=== PATIENT | female | born 1945 | race Hispanic/Latino ===

== ENCOUNTER 2017-10-11 16:20 | Emergency (ER) | payer BC, MEDICARE ==
[~2017-10-11] VITALS: Ht 170.2 cm; Wt 119.3 kg
[~2017-10-11 16:20] MED LIST: AMLODIPINE BESYL5 MG PO; ASPIR 8181 MG; GABAPENTIN300 MG PO; HUMALOG100 UNITS/ SQ; ISOSORBIDE MONO30 MG PO; LANTUS100 UNITS/ SQ; LEVOTHYROXINE50 MCG PO; METOPROLOL TART25 MG PO; OXCARBAZEPINE150 MG; PRAVASTATIN SOD40 MG; V; VITAMIN D1000 UNI1 PO; Z.0.FLAGYL500 MG PO; Z.0.KLONOPIN1 MG PO; Z.0.LEVAQUIN500 MG PO; Z.0.LEVEMIR 3M100 UN SQ; Z.0.LEVOTHROID100 MC PO; Z.0.LEVOTHYROXINE150 PO; Z.0.LISINOPRIL10 MG PO; Z.0.LOSARTAN POTASS2 PO; Z.0.METOPROLOL TART5 PO; Z.0.NORCO 5-325 TA1 PO; Z.0.PROTONIX40 MG PO; Z.1.HUMALOG100 UNIT/ SQ; [UNRECOGNIZED DRUG - OTHER] PO; [UNRECOGNIZED DRUG - OTHER] PO
[2017-10-11] MEDS ORDERED: HYDROCODONE/APAP 5MG-325MG TAB PO ONE (19:15)
[2017-10-11 19:32] LABS: BASOPHILS % 0.4 % (0.0-1.0); EOSINOPHILS # (AUTO) 0.4 (0.0-0.4); EOSINOPHILS % 4.3 % (0.0-6.0); HEMATOCRIT 35.6 % (34.2-44.1); HEMOGLOBIN 11.3 g/dL (12.0-16.0); LYMPHOCYTES # (AUTO) 1.4 (1.0-3.2); LYMPHOCYTES % 17.6 % (18.0-39.1); MEAN CORPUSCULAR HEMOGLOBIN 28.3 pg (28-32); MEAN CORPUSCULAR HGB CONC 31.7 g/dL (31-35); MEAN CORPUSCULAR VOLUME 89.2 fL (81-99); MONOCYTES # (AUTO) 0.7 (0.2-0.8); MONOCYTES % 7.9 % (4.4-11.3); NEUTROPHILS # (AUTO) 5.7 (2.1-6.9); NEUTROPHILS % 69.6 % (38.7-80.0); PLATELET COUNT 146 x10e3/uL (140-360); RED BLOOD COUNT 3.99 x10e6/uL (3.6-5.1); RED CELL DISTRIBUTION WIDTH 14.8 % (11.7-14.4)
--- NOTE | 2017-10-11 19:39 | Diagnostic Imaging Report ---
EXAM: CHEST SINGLE (PORTABLE), AP 1 view INDICATION: Neck pain COMPARISON: January 04, 2012 FINDINGS: LINES/TUBES: None LUNGS: No consolidations or edema. Stable mild basilar atelectasis. PLEURA: No effusions or pneumothorax. HEART AND MEDIASTINUM: Stable appearance BONES AND SOFT TISSUES: No acute findings. IMPRESSION: No acute thoracic abnormality. Signed by: Dr. Litzy Lai M.D. on 10/11/2017 7:36 PM
[2017-10-11 19:47] LABS: ALBUMIN 3.7 g/dL (3.5-5.0); ALBUMIN/GLOBULIN RATIO 0.9 (0.8-2.0); ANION GAP 17.8 mmol/L (8-16); CALCIUM 9.2 mg/dL (8.4-10.2); CREATININE, SERUM 2.3 mg/dL (0.57-1.11); MAGNESIUM 1.8 MG/DL (1.3-2.1); POTASSIUM 4.8 mmol/L (3.5-5.1)
[2017-10-11 19:53] LABS: CREATINE KINASE MB 3.3 ng/mL (0-5.0)
--- NOTE | 2017-10-11 19:54 | Diagnostic Imaging Report ---
History: Neck pain, upper back shoulder Comparison studies: None Technique: Axial images were obtained through the cervical region. Coronal and sagittal images reconstructed from the axial data. Intravenous contrast: None Findings: Atlantoaxial articulation: Intact Alignment: Normal lordosis No scoliosis. Cervicomedullary junction: No abnormalities. Patent foramen magnum. Soft tissues: Atherosclerotic calcifications of the carotid bulbs and vertebral arteries.. Vertebrae: No fractures, neoplasm or infection. Degenerative changes: C2-C3: Patent spinal canal and foramina . C3-4: Diffuse disc osteophyte complex and bilateral facet hypertrophy results in mild canal stenosis without significant foraminal narrowing . C4-5: Small central disc osteophyte complex without significant canal stenosis or foraminal narrowing . C5-6: Decreased intervertebral space. Left central disc osteophyte complex, left uncinate process hypertrophy and facet hypertrophy results in narrowing of the left subarticular recesses and mild left foraminal narrowing. C6-7: Patent spinal canal and foramina . C7-T1: Patent spinal canal and foramina . IMPRESSION: 1. Left central disc osteophyte complex and left uncinate process hypertrophy at C5-6 results in narrowing of the left subarticular recesses and mild left foraminal narrowing. 2. No acute abnormality. Other degenerative changes as described above. Signed by: DR Javier Mendoza M.D. on 10/11/2017 7:50 PM
[2017-10-11 20:56] VITALS: BP 173/63
== END 2017-10-11 21:14 | disposition home or self-care (01) ==
LOC: ER 16:20
DX: M54.2 Cervicalgia (principal); S16.1XXA Strain of muscle, fascia and tendon at neck level, initial encounter; I10 Essential (primary) hypertension; E11.9 Type 2 diabetes mellitus without complications; I25.10 Atherosclerotic heart disease of native coronary artery without angina pectoris
CPT/HCPCS: 36415; 71045; 72125; 80053; 82550; 82553; 83735; 83880; 84484; 85025; 99284

== ENCOUNTER 2019-06-18 18:19 | Emergency (ER) | payer MEDICARE ==
[~2019-06-18] VITALS: Ht 170.2 cm; Wt 119.3 kg
--- OUTSIDE RECORDS SUMMARY | 2019-06-18 18:24 | XMS REPORT | Summary of Care ---
Author Author JULIAN MERRITT M.D. Organization Unknown Address Unknown Phone Unavailable Care Team Providers Care Resource Economist Name Role Phone JULIAN MERRITT M.D. 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, E11.22) Status: Active Coronary artery disease (414.00, I25.10) Status: Active Seizure (780.39, R56.9) Status: Active Type 2 diabetes mellitus with chronic kidney disease, with long-term current use of insulin, unspecified CKD stage (250.40, E11.22) Status: Active Type 2 diabetes mellitus with other circulatory complication, with long-term current use of insulin (250.70, E11.59) Status: Active Essential hypertension (401.9, I10) Status: Active Hyperlipidemia (272.4, E78.5) Status: Active Hypothyroidism (244.9, E03.9) Status: Active Vitamin D deficiency (268.9, E55.9) Status: Active Medications Name Dates Details Levothyroxine Sodium 150 MCG Oral Tablet TAKE 1 TABLET BY MOUTH EVERY MORNING Quantity: 90 RENÉ JULIAN Santoyo * Start : 13-May-2014 Active OXcarbazepine 150 MG Oral Tablet TAKE 2 TABLETS TWICE DAILYper neurologist * Quantity: 120 Refills: 2 RENÉ JULIAN Santoyo * Start : 13-May-2014 Active Lantus 100 UNIT/ML Subcutaneous Solution INJECT 70 UNITS UNDER THE SKIN EVERY DAY AT 10AM * Quantity: 7 Refills: 0 RENÉ M.D., JULIAN * Start : 16-Aug-2014 Active 10 ML Vial HumaLOG 100 UNIT/ML Subcutaneous Solution INJECT 27-28 AT BREAKFAST; 20 AT LUNCH; 26-28 AT SUPPER; CF 30; Up to 100 alexei y) * Quantity: 9 Refills: 0 RENÉ Santoyo, JULIAN * Start : 16-Aug-2014 Active 10 ML Vial Vitamin D (Ergocalciferol) 1.25 MG (44980 UT) Oral Capsule TAKE 1 CAPSULE BY MOUTH EVERY TWICE A WEEK Start 07-17-17 * Quantity: 24 Refills: 3 RENÉ Vasquez.JULIAN Sanders * Start : 16-Aug-2014 Active Gabapentin 300 MG Oral Capsule TAKE ONE CAPSULE BY MOUTH EVERY DAY * Quantity: 90 Refills: 0 JULIAN MERRITT M.D. * Start : 16-Aug-2014 Active BD Insulin Syringe Ultrafine 31G X 5/16" 1 ML MISC 5 a day * Quantity: 500 Refills: 4 RENÉ Vasquez.JULIAN Sanders * Start : 16-Aug-2014 Active BD Insulin Syringe Ultrafine 31G X 5/16" 0.5 ML 4 a day * Refills: 0 JULIAN MERRITT M.D. * Start : 16-Aug-2014 Active GlucaGen HypoKit 1 MG Injection Solution Reconstituted USE DIRECTED in case of severe hypoglycemia * Quantity: 1 Refills: 6 RENÉ Pedro.Tommy, JULIAN * Start : 16-Aug-2014 Active BD Pen Needle Mini U/F 31G X 5 MM 1 a day * Refills: 0 JULIAN MERRITT M.D. * Start : 16-Aug-2014 Active Accu-Chek SmartView In Vitro Strip Check BG 4x a day * Quantity: 4 Refills: 3 RENÉ Pedro.JULIAN Sanders * Start : 16-Aug-2014 Active 100 Strip Box Accu-Chek FastClix Lancets Check BG 4x a day * Quantity: 4 Refills: 3 RENÉ Pedro.Kathy.JULIAN * Start : 16-Aug-2014 Active Metoprolol Tartrate 25 MG Oral Tablet TAKE 1 TABLET TWICE DAILY. Per information systems security developer * Refills: 0 RENÉ JULIAN Santoyo * Start : 07-Jun-2016 Active Aspirin 81 MG Oral Tablet Chewable 1 a day NOT TAKING * Refills: 0 RENÉ M.D., JULIAN * Start : 09-Sep-2016 Active Bumetanide 1 MG Oral Tablet Per information systems security developer * Refills: 0 RENÉ M.D., JULIAN * Start : 09-Sep-2016 Active Lisinopril 10 MG Oral Tablet per renal * Refills: 0 RENÉ M.D., JULIAN * Start : 09-Sep-2016 Active 30 Tablet Pack Atorvastatin Calcium 10 MG Oral Tablet Per information systems security developer * Refills: 0 RENÉ M.D., JULIAN * Start : 09-Sep-2016 Active 30 Tablet Pack Allopurinol 100 MG Oral Tablet per renal * Refills: 0 RENÉ M.D., JULIAN * Start : 15-Apr-2018 Active Allergies and Adverse Reactions Name Dates Details Penicillins (Allergy) Status: Active Past Medical History Name Dates Details History of coronary atherosclerosis (V12.59, Z86.79) Status: Resolved Procedures Procedure Dates Details History of Cholecystectomy Completed History of Back Surgery Completed History of Hysterectomy Completed History of Appendectomy Completed History of Foot Surgery Completed History of Coronary artery bypass graft Completed Immunization Name Dates Details Fluzone High-Dose 0.5 ML Intramuscular Suspension Prefilled Syringe Lot #: [id number] on: 01-Mar-2015 Fluzone High-Dose 0.5 ML Intramuscular Suspension Prefilled Syringe Lot #: [id number] on: 05-Feb-2016 Fluzone High-Dose 0.5 ML Intramuscular Suspension Prefilled Syringe Lot #: [id number] on: 12-Jan-2018 Influenza on: 27-Jan-2019 Family History Name Dates Details Family history of diabetes mellitus (V18.0, Z83.3) Status: Active Name Dates Details Family history of diabetes mellitus (V18.0, Z83.3) Status: Active Social History Name Dates Details - Status: Name Dates Details Never smoker Vital Signs Date Test Result Details :38 BP Systolic 130 mm[Hg] Status: BP Diastolic 70 mm[Hg] Status: :17 BP Systolic 106 mm[Hg] Status: Comments: Location: LUE; Position: Sitting BP Diastolic 57 mm[Hg] Status: Comments: Location: LUE; Position: Sitting Height 67 in Status: Weight 250.375 lb Status: Body Mass Index Calculated 39.21 kg/m2 Status: Body Surface Area Calculated 2.22 m2 Status: Heart Rate 94 /min Status: Results Date Description Value Details [id number] [O] Lipid Panel (In Office) CHOLESTEROL, TOTAL 169 HDL CHOLESTEROL 45 TRIGLYCERIDES 315 LDL-CHOLESTEROL 61 NON HDL CHOLESTEROL 124 T. Chol/HDL Ratio 3.8 GLUCOSE 151 81-[id number]:18 Glucose (Point of Care In Office) Glucose POC Lifescan 142 45-Vzk-474446:19 [O] Hemoglobin A1c (in office) HEMOGLOBIN A1c 7.3 Plan of Care Name Dates Details Planned Observations Planned Goals not documented Planned Encounters Appointment; JULIAN MERRITT M.D. On: 09-Aug-2019 16:15 Interventions Provided Labs/Procedures/Imaging* [O] Hemoglobin A1c (in office); Done: 07 May 2019 * [O] Lipid Panel (In Office); Done: 07 May 2019 * Glucose (Point of Care In Office); Done: 07 May 2019 Discussion/Summary* A1c modestly lower. Continue regimen.She is advised to take Humalog //. Continue lantus 70 units every morning * Continue to do SMBG * Discussed the importance of DM control and its metabolic and vascular complications. Stressed the importance of consistent MNT and med compliance in DM control * Take insulin timely * Take medicine per Renal. Discussed the importance of BP control. * Take medicine per information systems security developer. MNT reiterated. Discussed the importance of Lipid control. * take LT4; serial TFT and adjust dose as needed * REview the proper way to tahe LT4 * Discussed the importance of maintaining euthyroidism. Discussed the need to avoid thyrotoxicosis and its adverse health effects sukumar to the heart and bones. * Take Vit D * Spent 20/25 mins counseling Instructions Name Dates Details Instructions not documented Encounters Appointment; JULIAN MERRITT M.D. Encounter Diagnosis: Problem not documented On: 16-Jul-2017 12:00 Appointment; JULIAN MERRITT M.D. Encounter Diagnosis: Problem not documented On: 14-Oct-2017 15:15 Appointment; JULIAN MERRITT M.D. Encounter Diagnosis: Problem not documented On: 12-Jan-2018 15:15 Appointment; JULIAN MERRITT M.D. Encounter Diagnosis: Problem not documented On: 15-Apr-2018 14:15 Appointment; JULIAN MERRITT M.D. Encounter Diagnosis: Problem not documented On: 05-Aug-2018 16:15 Appointment; JULIAN MERRITT M.D. Encounter Diagnosis: Problem not documented On: 04-Nov-2018 14:45 Appointment; JULIAN MERRITT M.D. Encounter Diagnosis: Problem not documented On: 04-Feb-2019 15:15 Appointment; JULIAN MERRITT M.D. Encounter Diagnosis: Problem not documented On: 07-May-2019 15:15
--- OUTSIDE RECORDS SUMMARY | 2019-06-18 18:24 | XMS REPORT | Summary of Care ---
Author Author Bobby M.A.[facility] Unknown Address [facility] Phone Unavailable Care Team Providers Care Gallery Assistant Name Role Phone JULIAN MERRITT M.D. Unavailable Unavailable BROOKE DORAN MD Unavailable Unavailable BROOKE DORAN DO Unavailable Unavailable Unavailable [...] use of insulin (250.70, E11.59) Status: Active Type 2 diabetes mellitus with chronic kidney disease, with long-term current use of insulin, unspecified CKD stage (250.40, E11.22) Status: Active Essential hypertension (401.9, I10) Status: Active Hyperlipidemia (272.4, E78.5) Status: Active Hypothyroidism (244.9, E03.9) Status: Active Vitamin D deficiency (268.9, E55.9) Status: Active Medications Name Dates Details Levothyroxine Sodium 150 MCG Oral Tablet TAKE 1 TABLET BY MOUTH EVERY MORNING Quantity: 90 JULIAN MERRITT M.D. * Start : 13-May-2014 Active OXcarbazepine 150 MG Oral Tablet TAKE 2 TABLETS TWICE DAILYper neurologist * Quantity: 120 Refills: 2 JULIAN MERRITT M.D. * Start : 13-May-2014 Active Lantus 100 UNIT/ML Subcutaneous Solution INJECT 70 UNITS UNDER THE SKIN EVERY DAY AT 10AM * Quantity: 7 Refills: 0 JULIAN MERRITT M.D. * Start : 16-Aug-2014 Active 10 ML Vial HumaLOG 100 UNIT/ML Subcutaneous Solution INJECT 27-28 AT BREAKFAST; 20 AT LUNCH; 24-26 AT SUPPER; CF 30; Up to 100 alexei y) * Quantity: 9 Refills: 0 RENÉ Santoyo, JULIAN * Start : 16-Aug-2014 Active 10 ML Vial Vitamin D (Ergocalciferol) 1.25 MG (52399 UT) Oral Capsule TAKE 1 CAPSULE BY MOUTH EVERY TWICE A WEEK Start 07-17-17 * Quantity: 24 Refills: 3 RENÉ Vasquez.Tommy, JULIAN * Start : 16-Aug-2014 Active Gabapentin 300 MG Oral Capsule TAKE ONE CAPSULE BY MOUTH EVERY DAY * Quantity: 90 Refills: 0 JULIAN MERRITT M.D. * Start : 16-Aug-2014 Active BD Insulin Syringe Ultrafine 31G X 5/16" 1 ML MISC 5 a day * Quantity: 500 Refills: 4 JULIAN MERRITT M.D. * Start : 16-Aug-2014 Active BD Insulin Syringe Ultrafine 31G X 5/16" 0.5 ML 4 a day * Refills: 0 JULIAN MERRITT M.D. * Start : 16-Aug-2014 Active GlucaGen HypoKit 1 MG Injection Solution Reconstituted USE DIRECTED in case of severe hypoglycemia * Quantity: 1 Refills: 6 JULIAN MERRITT M.D. * Start : 16-Aug-2014 Active BD Pen [...] day * Quantity: 4 Refills: 3 RENÉ Pedro.Tommy, JULIAN * Start : 16-Aug-2014 Active Metoprolol Tartrate 25 MG Oral Tablet TAKE 1 TABLET TWICE DAILY. Per veneer sheet repairer * Refills: 0 JULIAN MERRITT M.D. * Start : 07-Jun-2016 Active Aspirin 81 MG Oral Tablet Chewable 1 a day * Refills: 0 RENÉ Vasquez.Tommy, JULIAN * Start : 09-Sep-2016 Active Bumetanide 1 MG Oral Tablet Per veneer sheet repairer * Refills: 0 RENÉ Pedro.D., JULIAN * Start : 09-Sep-2016 Active Lisinopril 10 MG Oral Tablet per renal * Refills: 0 RENÉ M.D., JULIAN * Start : 09-Sep-2016 Active 30 Tablet Pack Atorvastatin Calcium 10 MG Oral Tablet Per veneer sheet repairer * Refills: 0 RENÉ M.D., JULIAN * [...] ML Intramuscular Suspension Prefilled Syringe Lot #: [id number] on: 01-Mar-2015 Fluzone High-Dose 0.5 ML Intramuscular Suspension Prefilled Syringe Lot #: [id number] on: 05-Feb-2016 Fluzone High-Dose 0.5 ML Intramuscular Suspension Prefilled Syringe Lot #: [id number] on: 12-Jan-2018 Influenza on: 27-Jan-2019 Family History Name Dates Details Family history of diabetes mellitus (V18.0, Z83.3) Status: Active Name Dates Details Family history of diabetes mellitus (V18.0, Z83.3) Status: Active Social History Name Dates Details - Status: Name Dates Details Never smoker Vital Signs Date Test Result Details No Known Vitals to report Results Date Description Value Details Results not documented Plan of Care Name Dates Details Planned Observations Planned Goals not documented Planned Encounters Appointment; JULIAN MERRITT M.D. On: 07-May-2019 15:15 Interventions Provided Medication Changes* Gabapentin 300 MG Oral Capsule - Renew Instructions Name Dates Details Instructions not documented Encounters Appointment; JULIAN MERRITT M.D. Encounter Diagnosis: Problem not documented On: 18-Apr-2017 14:45 Appointment; JULIAN MERRITT M.D. Encounter Diagnosis: [...]
--- OUTSIDE RECORDS SUMMARY | 2019-06-18 18:24 | XMS REPORT | Summary of Care ---
Author Author JULIAN MERRITT M.D. Organization Unknown Address Unknown Phone Unavailable Care Team Providers Care Line Closer Name Role Phone JULIAN MERRITT M.D. Unavailable [...] ML Vial Vitamin D (Ergocalciferol) 1.25 MG (90027 UT) Oral Capsule TAKE 1 CAPSULE BY [...] day * Quantity: 4 Refills: 3 RENÉ Pedro.Kathy., JULIAN * Start : 16-Aug-2014 Active Metoprolol Tartrate 25 MG Oral Tablet TAKE 1 TABLET TWICE DAILY. Per photographic technician * Refills: 0 RENÉ JULIAN Santoyo * Start : 07-Jun-2016 Active Aspirin 81 MG Oral Tablet Chewable 1 a day * Refills: 0 RENÉ M.D., JULIAN * Start : 09-Sep-2016 Active Bumetanide 1 MG Oral Tablet Per photographic technician * Refills: 0 RENÉ Vasquez.Kathy., JULIAN * Start : 09-Sep-2016 Active Lisinopril 10 MG Oral Tablet per renal * Refills: 0 RENÉ Vasquez.Tommy, JULIAN * Start : 09-Sep-2016 Active 30 Tablet Pack Atorvastatin Calcium 10 MG Oral Tablet Per photographic technician * Refills: 0 RENÉ Vasquez.Kathy., JULIAN * Start : 09-Sep-2016 Active 30 Tablet Pack Allopurinol 100 MG Oral Tablet per renal * Refills: 0 RENÉ Vasquez.Tommy, JULIAN * Start : 15-Apr-2018 Active Allergies [...] ML Intramuscular Suspension Prefilled Syringe Lot #: [id number] on: 01-Mar-2015 Fluzone High-Dose 0.5 ML Intramuscular Suspension Prefilled Syringe Lot #: [id number] on: 05-Feb-2016 Fluzone High-Dose 0.5 ML Intramuscular Suspension Prefilled Syringe Lot #: [id number] on: 12-Jan-2018 Influenza on: 27-Jan-2019 Family History [...] MERRITT M.D. On: 07-May-2019 15:15 Interventions Provided Discussion/Summary* Discussed the importance of DM control and its complications. Stressed the importance of consistent MNT and med compliance in DM control * do SMBG. * Take insulin timely * Take medicine. Discussed the importance of BP control. * Take medicine. MNT reiterated. Discussed the importance of Lipid control. * take LT4; serial TFT and adjust dose as needed * REview the proper way to tahe LT4 * Discussed the importance of maintaining euthyroidism. Discussed the need to avoid thyrotoxicosis and its adverse health effects sukumar to the heart and bones. * Take Vit D Instructions Name Dates Details Instructions not documented [...]
--- OUTSIDE RECORDS SUMMARY | 2019-06-18 18:25 | XMS REPORT | Summary of Care ---
Author Author Leah Singh Organization Unknown Address Unknown Phone Unavailable Care Team Providers Care Hourly Sign Language Interpreter Name Role Phone Leah Singh Unavailable Unavailable JULIAN MERRITT M.D. Unavailable BROOKE DORAN MD Unavailable BROOKE DORAN [...] ML Vial Vitamin D (Ergocalciferol) 1.25 MG (29600 UT) Oral Capsule TAKE 1 CAPSULE BY [...] Pedro.Tommy, JULIAN * Start : 16-Aug-2014 Active 100 Strip Box Accu-Chek FastClix Lancets Check BG 4x a day * Quantity: 4 Refills: 3 RENÉ Vasquez.Tommy, JULIAN * Start : 16-Aug-2014 Active Metoprolol Tartrate 25 MG Oral Tablet TAKE 1 TABLET TWICE DAILY. Per director of sales and marketing * Refills: 0 JULIAN MERRITT M.D. * Start : 07-Jun-2016 Active Aspirin 81 MG Oral Tablet Chewable 1 a day NOT TAKING * Refills: 0 RENÉ M.D., JULIAN * Start : 09-Sep-2016 Active Bumetanide 1 MG Oral Tablet Per director of sales and marketing * Refills: 0 RENÉ M.D., JULIAN * Start : 09-Sep-2016 Active Lisinopril 10 MG Oral Tablet per renal * Refills: 0 RENÉ M.D., JULIAN * Start : 09-Sep-2016 Active 30 Tablet Pack Atorvastatin Calcium 10 MG Oral Tablet Per director of sales and marketing * Refills: 0 RENÉ M.D., JULIAN * [...] ML Intramuscular Suspension Prefilled Syringe Lot #: [id number] on: 01-Mar-2015 Fluzone High-Dose 0.5 ML Intramuscular Suspension Prefilled Syringe Lot #: [id number] on: 05-Feb-2016 Fluzone High-Dose 0.5 ML Intramuscular Suspension Prefilled Syringe Lot #: [id number] on: 12-Jan-2018 Influenza on: 27-Jan-2019 Family History Name Dates Details Family history of diabetes mellitus (V18.0, Z83.3) Status: Active Name Dates Details Family history of diabetes mellitus (V18.0, Z83.3) Status: Active Social History Name Dates Details - Status: Name Dates Details Never smoked tobacco (finding) Vital Signs Date Test Result Details :38 Systolic blood pressure 130 mm[Hg] Status: Diastolic blood pressure 70 mm[Hg] Status: :17 Systolic blood pressure 106 mm[Hg] Status: Comments: Location: LUE; Position: Sitting Diastolic blood pressure 57 mm[Hg] Status: Comments: Location: LUE; Position: Sitting Body height 67 in Status: Weight 250.375 lb Status: Body mass index (BMI) [Ratio] 39.21 kg/m2 Status: Body surface area Derived from formula 2.22 m2 Status: Heart Rate 94 /min Status: Results Date Description Value Details :18 [O] Lipid Panel (In Office) CHOLESTEROL, TOTAL 169 HDL CHOLESTEROL 45 TRIGLYCERIDES 315 LDL-CHOLESTEROL 61 NON HDL CHOLESTEROL 124 T. Chol/HDL Ratio 3.8 GLUCOSE 151 :18 Glucose (Point of Care In Office) Glucose POC Lifescan 142 80-[id number]:19 [O] Hemoglobin A1c (in office) HEMOGLOBIN A1c 7.3 [id number] [facility] Hemoglobin and Hematocrit HEMAGLOBIN 9.9 HEMATOCRIT 29.2 :00 [[facility]] CMP W/EGFR AST 13 (Normal) ALKALINE PHOSPHATE 120 (Normal) ALT 8 (Normal) BILIRUBIN, TOTAL 0.3 (Normal) TOTAL PROTEIN 7.6 (Normal) ALBUMIN 4.2 (Normal) CALCIUM 9.5 (Normal) CREATININE 2.15 BLOOD UREA NITROGEN 73 CARBON DIOXIDE 24 (Normal) CHLORIDE 103 (Normal) POTASSIUM 4.9 (Normal) SODIUM 140 (Normal) eGFR If NonAfricn Am 22 Plan of Care Name Dates Details Planned Observations Planned Goals not documented Planned Encounters Appointment; JULIAN MERRITT M.D. On: 09-Aug-2019 16:15 Instructions Name Dates Details Instructions not documented [...]
--- OUTSIDE RECORDS SUMMARY | 2019-06-18 18:25 | XMS REPORT | Summary of Care ---
Author Author JULIAN MERRITT M.D. Organization Unknown Address Unknown Phone Unavailable Care Team Providers Care Business Relations Manager Name Role Phone JULIAN MERRITT M.D. Unavailable [...] ML Vial Vitamin D (Ergocalciferol) 1.25 MG (87080 UT) Oral Capsule TAKE 1 CAPSULE BY [...] Tablet TAKE 1 TABLET TWICE DAILY. Per ruffling machine operator * Refills: 0 RENÉ JULIAN Santoyo * Start : 07-Jun-2016 Active Aspirin 81 MG Oral Tablet Chewable 1 a day NOT TAKING * Refills: 0 RENÉ M.D., JULIAN * Start : 09-Sep-2016 Active Bumetanide 1 MG Oral Tablet Per ruffling machine operator * Refills: 0 RENÉ M.D., JULIAN * Start : 09-Sep-2016 Active Lisinopril 10 MG Oral Tablet per renal * Refills: 0 RENÉ M.D., JULIAN * Start : 09-Sep-2016 Active 30 Tablet Pack Atorvastatin Calcium 10 MG Oral Tablet Per ruffling machine operator * Refills: 0 RENÉ M.D., JULIAN * [...] ML Intramuscular Suspension Prefilled Syringe Lot #: [id number] on: 01-Mar-2015 Fluzone High-Dose 0.5 ML Intramuscular Suspension Prefilled Syringe Lot #: [id number] on: 05-Feb-2016 Fluzone High-Dose 0.5 ML Intramuscular Suspension Prefilled Syringe Lot #: [id number] on: 12-Jan-2018 Influenza on: 27-Jan-2019 Family History [...] /min Status: Results Date Description Value Details [id number] [O] Lipid Panel (In Office) CHOLESTEROL, TOTAL 169 HDL CHOLESTEROL 45 TRIGLYCERIDES 315 LDL-CHOLESTEROL 61 NON HDL CHOLESTEROL 124 T. Chol/HDL Ratio 3.8 GLUCOSE 151 61-Yib-705426:18 Glucose (Point of Care In Office) Glucose POC Lifescan 142 67-Xbu-[id number] [O] Hemoglobin A1c (in office) HEMOGLOBIN A1c 7.3 [id number] [[facility]] Hemoglobin and Hematocrit HEMAGLOBIN 9.9 HEMATOCRIT 29.2 6-[id number]:00 [[facility]] CMP W/EGFR AST 13 (Normal) ALKALINE PHOSPHATE [...] M.D. On: 09-Aug-2019 16:15 Interventions Provided Labs/Procedures/Imaging* [QL] CMP W/EGFR; Done: 10 May 2019 * [[facility]] Hemoglobin and Hematocrit; Done: 10 May 2019 Instructions Name Dates Details Instructions not documented [...]
[2019-06-18 19:00] LABS: BASOPHILS % 0.2 % (0.0-1.0); EOSINOPHILS # (AUTO) 0.3 (0.0-0.4); EOSINOPHILS % 3.3 % (0.0-6.0); HEMATOCRIT 28.8 % (34.2-44.1); HEMOGLOBIN 9.1 g/dL (12.0-16.0); LYMPHOCYTES # (AUTO) 0.8 (1.0-3.2); LYMPHOCYTES % 9.1 % (18.0-39.1); MEAN CORPUSCULAR HEMOGLOBIN 29.7 pg (28-32); MEAN CORPUSCULAR HGB CONC 31.6 g/dL (31-35); MEAN CORPUSCULAR VOLUME 94.1 fL (81-99); MONOCYTES # (AUTO) 0.6 (0.2-0.8); MONOCYTES % 6.3 % (4.4-11.3); NEUTROPHILS # (AUTO) 7.1 (2.1-6.9); NEUTROPHILS % 80.8 % (38.7-80.0); PLATELET COUNT 152 x10e3/uL (140-360); RED BLOOD COUNT 3.06 x10e6/uL (3.6-5.1); RED CELL DISTRIBUTION WIDTH 16.3 % (11.7-14.4)
[2019-06-18 19:18] LABS: ALBUMIN 3.7 g/dL (3.5-5.0); CALCIUM 9.3 mg/dL (8.4-10.2); CREATININE, SERUM 2.49 mg/dL (0.57-1.11)
[2019-06-18] MEDS ORDERED: DIATRIZOATE MEGL/DIATRIZOA SOD 30 ML BTL PO ONE (20:17)
[2019-06-18 22:29] LABS: CLARITY,URINE CLEAR (CLEAR); COLOR,URINE YELLOW (YELLOW); KETONES,URINE NEGATIVE (NEGATIVE); LEUKOCYTE ESTERASE ,URINE NEGATIVE (NEGATIVE); NITRITE,URINE NEGATIVE (NEGATIVE); PROTEIN,URINE DIPSTICK NEGATIVE (NEGATIVE); URINE UROBILINOGEN 0.2 mg/dL (0.2 - 1)
[2019-06-18 22:30] LABS: BILIRUBIN,URINE NEGATIVE (NEGATIVE)
--- NOTE | 2019-06-18 22:37 | Diagnostic Imaging Report ---
EXAM: CT Abdomen and Pelvis WITHOUT contrast INDICATION: Left lower quadrant abdominal pain. COMPARISON: None. TECHNIQUE: Abdomen and pelvis were scanned utilizing a multidetector helical scanner from the lung base to the pubic symphysis without administration of IV contrast. Absence of intravenous contrast decreases sensitivity for detection of focal lesions and vascular pathology. Coronal and sagittal reformations were obtained. Routine protocol was performed. IV CONTRAST: None. ORAL CONTRAST: Gastrografin RADIATION DOSE: Total DLP: 877.9 mGy*cm Estimated effective dose: (DLP x 0.015 x size factor) mSv COMPLICATIONS: None FINDINGS: LINES and TUBES: None. LOWER THORAX: Severe coronary atherosclerosis. Lower lung zone subsegmental atelectasis with possible scarring. HEPATOBILIARY: No evidence of mass. Calcified left hepatic lobe granulomas. There is intra- and extra- hepatic biliary dilation likely post cholecystectomy reservoir effect. GALLBLADDER: Surgically absent. SPLEEN: No splenomegaly. PANCREAS: Fatty atrophy. No focal masses or ductal dilatation. ADRENALS: No adrenal nodules KIDNEYS/URETERS: No hydronephrosis. No cystic or solid mass lesions. No stones. GI TRACT: No evidence of bowel obstruction. This focal mild wall thickening within the distal descending colon with minimal inflammatory changes as seen on series 2, image 46. Sigmoid colonic diverticulosis without evidence of diverticulitis. The appendix is not visualized, however there are no secondary signs of appendectomy. PELVIC ORGANS/BLADDER: The bladder appears partially decompressed and mildly thick-walled. Status post hysterectomy. LYMPH NODES: No lymphadenopathy. VESSELS: There is severe atherosclerotic disease in the aorta and major arterial branches. PERITONEUM / RETROPERITONEUM: No free air or fluid. BONES: No acute osseous abnormality. No suspicious lytic or blastic lesions. Severe degenerative disc changes of the visualized spine. SOFT TISSUES: Subcutaneous edema which may represent injection sites in the bilateral lower abdomen. IMPRESSION: Mild distal descending colonic short segment wall thickening with minimal inflammatory changes. This may represent focal infectious or inflammatory colitis. However follow-up GI consultation for colonoscopy is suggested to exclude underlying lesion. Apparent mild wall thickening within the bladder may reflect partial decompression versus cystitis. Severe coronary and abdominal aortic atherosclerosis. Signed by: Dr. Carolyn Balderas MD on 06/18/2019 10:34 PM
[2019-06-18 23:59] LABS: BACTERIA,URINE FEW /HPF; EPITHELIAL CELLS,URINE FEW /LPF; RBC,URINE 0-5 /HPF (0-5); WBC,URINE (MAN) 0-5 /HPF (0-5)
[2019-06-19 00:50] VITALS: BP 126/60
== END 2019-06-18 23:30 | disposition home or self-care (01) ==
LOC: ER 18:19
DX: R10.32 Left lower quadrant pain (principal); K52.9 Noninfective gastroenteritis and colitis, unspecified; I10 Essential (primary) hypertension; E11.9 Type 2 diabetes mellitus without complications; I25.10 Atherosclerotic heart disease of native coronary artery without angina pectoris; Z95.1 Presence of aortocoronary bypass graft
CPT/HCPCS: 36415; 74176; 80053; 81001; 82270; 85025; 87177; 87328

== ENCOUNTER → 2021-02-06 | Outpatient (CLI) | payer MEDICARE ==
[~2021-02-06] MED LIST changes: +IOPAMIDOL 370 MG/ML 200 ML INFUS..BTL INJ ONE; +SODIUM CHLORIDE 0.9% 100 ML ONE
[2021-02-06 08:09] LABS: CREATININE, SERUM 2.26 mg/dL (0.57-1.11)
== END ==
LOC: CT 07:25
PROVIDERS: ATTEND Internal Medicine Cardiovascular Disease
DX: I70.213 Atherosclerosis of native arteries of extremities with intermittent claudication, bilateral legs (principal)
CPT/HCPCS: 36415; 75635; 82565; 84520; J7050; Q9967

== ENCOUNTER → 2021-03-12 | Day surgery (SDC) | payer MEDICARE ==
[2021-03-08 10:33] LABS: BASOPHILS % 0.4 % (0.0-1.0); EOSINOPHILS # (AUTO) 0.4 (0.0-0.4); EOSINOPHILS % 5.2 % (0.0-6.0); HEMATOCRIT 33.6 % (34.2-44.1); HEMOGLOBIN 10.2 g/dL (12.0-16.0); LYMPHOCYTES # (AUTO) 1.2 (1.0-3.2); LYMPHOCYTES % 18.3 % (18.0-39.1); MEAN CORPUSCULAR HEMOGLOBIN 29.1 pg (28-32); MEAN CORPUSCULAR HGB CONC 30.4 g/dL (31-35); MEAN CORPUSCULAR VOLUME 95.7 fL (81-99); MONOCYTES # (AUTO) 0.6 (0.2-0.8); MONOCYTES % 8.8 % (4.4-11.3); NEUTROPHILS # (AUTO) 4.6 (2.1-6.9); PLATELET COUNT 141 x10e3/uL (140-360); RED BLOOD COUNT 3.51 x10e6/uL (3.6-5.1); RED CELL DISTRIBUTION WIDTH 15.9 % (11.7-14.4)
[2021-03-08 10:44] LABS: INR 0.95; PROTHROMBIN TIME 13.4 seconds (11.9-14.5)
[2021-03-08 10:59] LABS: ALBUMIN 3.8 g/dL (3.5-5.0); ALBUMIN/GLOBULIN RATIO 1.2 (0.8-2.0); ANION GAP 17.4 mmol/L (8-16); CREATININE, SERUM 2.56 mg/dL (0.57-1.11); POTASSIUM 4.4 mmol/L (3.5-5.1)
[2021-03-12] VITALS (10 sets, daily range): BP systolic 106–129; BP diastolic 53–61
[~2021-03-12] VITALS: Ht 170.2 cm; Wt 105.2 kg
[~2021-03-12] MED LIST changes: +ALLOPURINOL300 MG PO; +ASPIRIN 325 MG TAB ONE; +ATORVASTATIN CA10 MG PO; +BUMETANIDE1 MG PO; +CLOPIDOGREL BISULFATE 75 MG TAB ONE; +FENTANYL CITRATE/PF 100MCG/2 ML INJ ONE; +HEPARIN SOD (PORCINE) 1000 UNIT/ML 30ML ONE; +HEPARIN SOD/SOD CHLORIDE 2,000 ML ONE; +ICOSAPENT ETHYL PO; +IOPAMIDOL 300MG/ML 100 ML INFUS..BTL IV ONE; -IOPAMIDOL 370 MG/ML 200 ML INFUS..BTL INJ ONE; +LIDOCAINE HCL 2% LOCAL 20 ML VIAL ONE; +MIDAZOLAM HCL 2 MG/2 ML VIAL ONE; +NITROGLYCERIN/D5W 200 MCG/ML 250 ML ONE; -SODIUM CHLORIDE 0.9% 100 ML ONE; +SODIUM CHLORIDE 0.9% 1000ML 0 ML ONE; +SODIUM CHLORIDE 0.9% 1000ML 1,000 ML ONE; +VITAMIN D250 MC1
== END | disposition home or self-care (01) ==
LOC: CATH LAB 06:52
PROVIDERS: ATTEND Internal Medicine Cardiovascular Disease
DX: I70.213 Atherosclerosis of native arteries of extremities with intermittent claudication, bilateral legs (principal); I25.810 Atherosclerosis of coronary artery bypass graft(s) without angina pectoris; E78.00 Pure hypercholesterolemia, unspecified; I10 Essential (primary) hypertension; E11.9 Type 2 diabetes mellitus without complications; R56.9 Unspecified convulsions; Z88.0 Allergy status to penicillin; Z88.8 Allergy status to other drugs, medicaments and biological substances; Z01.810 Encounter for preprocedural cardiovascular examination; Z01.812 Encounter for preprocedural laboratory examination; Z01.818 Encounter for other preprocedural examination; Z20.822 Contact with and (suspected) exposure to COVID-19; Z79.4 Long term (current) use of insulin; Z79.899 Other long term (current) drug therapy; Z68.37 Body mass index [BMI] 37.0-37.9, adult; Z95.1 Presence of aortocoronary bypass graft; Z87.891 Personal history of nicotine dependence
CPT/HCPCS: 36415; 37224; 71046; 80053; 85025; 85610; 93005; C1725; C1760; C1769 ×2; C1887 ×2; C2623; J1644; J2001; J2250; J3010; J7030; Q9967; U0002; 36247; 75710; 99152